=== PATIENT | female | born 1935 | race Caucasian/White ===

== ENCOUNTER → 2017-04-06 | Outpatient (CLI) | payer OTHER ==
[~2017-04-06] MED LIST: HYDACE5 PO; HYDCOR2.5B TOP; LEVLIO1
== END | disposition home or self-care (01) ==
LOC: LAB EV 12:40
DX: N30.01 Acute cystitis with hematuria (principal)
CPT/HCPCS: 87086; 87147

== ENCOUNTER 2017-11-07 21:45 | Emergency (ER) | payer OTHER ==
[~2017-11-07] VITALS: Ht 160 cm; Wt 54.4 kg
== END 2017-11-08 01:11 | disposition home or self-care (01) ==
LOC: ER 21:45
DX: S09.90XA Unspecified injury of head, initial encounter (principal); S40.011A Contusion of right shoulder, initial encounter; S70.01XA Contusion of right hip, initial encounter; F03.90 Unspecified dementia, unspecified severity, without behavioral disturbance, psychotic disturbance, mood disturbance, and anxiety; Z88.0 Allergy status to penicillin; Z88.2 Allergy status to sulfonamides; Z79.899 Other long term (current) drug therapy; W19.XXXA Unspecified fall, initial encounter
CPT/HCPCS: 70450; 71046; 73502; 96372; 99284-25; J3010